=== PATIENT | female | born 1955 | race Caucasian/White ===

== ENCOUNTER → 2017-08-14 | Day surgery (SDC) | payer BC, OTHER ==
[~2017-08-14] MED LIST: Dexamethasone 20 MG/5 ML VIAL ONE; Fentanyl 100 MCG/2 ML VIAL ONE; Iothalamate Meglumine 60% 50 ML VIAL FS ONE; Ketorolac Tromethamine 30 MG/ML VIAL ONE; Lidocaine 2% PF 10 ML AMP (For Epidural Use) ONE; Midazolam HCl 2 mg/2 ml Vial ONE; Morphine Sulfate 2 MG/ML SYRINGE ONE; Ondansetron HCl/PF 4 MG/2 ML Vial ONE; PHENYLEPHRINE-NS 100 MCG/ML 10 ML SYRINGE ONE; Propofol 200 MG/20 ML VIAL ONE; ePHEDrine/0.9% NaCl/PF SYRINGE 50 mg/10 ml ONE
[2017-08-14 04:08] LABS: #Basophils 0.1 thou/uL (0.0-0.2); #Eosinphils 0.3 thou/uL (0.0-0.7); #Lymphocytes 2.3 thou/uL (1.20-3.40); #Monocytes 0.6 thou/uL (0.11-0.59); %Basophils 0.6 % (0.0-1.0); %Eosinophils 3.3 % (0.0-10.0); %Lymphocytes 22.6 % (21.0-51.0); %Monocytes 5.6 % (0.0-10.0); Hematocrit 43.6 % (36.0-47.0); Mean Platelet Volume 5.9 fL (7.4-10.4); Red Blood Cell (RBC) Count 4.64 mill/uL (4.20-5.40); White Blood Cell (WBC) Count 10.3 thou/uL (4.8-10.8)
[2017-08-14 04:25] LABS: ALT (SGPT) 26 U/L (8-55); AST (SGOT) 20 U/L (5-34); Alkaline Phosphatase 89 U/L (40-150); Anion Gap 12 mmol/L (10-20); BUN (Urea Nitrogen) 19 mg/dL (9.8-20.1); Bilirubin, Total 0.2 mg/dL (0.2-1.2); Calc. Creatinine Clearance 0 mL/min (70-130); Calcium 9.6 mg/dL (7.8-10.44); Carbon Dioxide 25 mmol/L (22-29); Chloride 107 mmol/L (98-107); Estimated GFR-MDRD 75; Globulin 3.1 g/dL (2.4-3.5); Lipase 12 U/L (8-78); Protein, Total 7.1 g/dL (6.0-8.3)
[2017-08-14 04:52] LABS: Bilirubin Negative (Negative); Blood, Urine Small (Negative); Glucose, Urine (Dipstick) 100 mg/dL (Negative); Ketone, Urine Negative (Negative); Nitrite Negative (Negative); Protein, Urine (Dipstick) Negative (Neg-Trace); Urobilinogen 0.2 mg/dL (0.2-1.0)
[2017-08-14 04:55] LABS: Bacteria/HPF None Seen HPF (None Seen); Hyaline Casts/LPF 4-6 HYALINE CAST LPF (0-3 Hyaline); Squamous Epithelial None Seen HPF (0-3)
--- NOTE | 2017-08-14 14:20 | CON ---
DATE OF CONSULTATION: 08/14/2017 REASON FOR CONSULTATION: Left ureteral stone. HISTORY OF PRESENT ILLNESS: Ms. Parson is a 62-year-old female with a history of recurrent stone di sease. She is typically managed by Dr. Cervantes. She most recently had a left ureteroscopy for left ureteral stone in 06/2016. She presents now with 3-day history of flank pain. Today, it becam e severe and intolerable. She presented to the emergency room and underwent CT scan. This demonstr ated a left upper ureteral stone approximately 6 mm in size with proximal hydroureter and hydronephr osis and perinephric stranding. She denies fevers or chills. She has had vomiting. She has been m anaged in the emergency room with pain medicine, but her pain has been recurrent. She has requested stent placement. PAST MEDICAL HISTORY: Diverticulitis, recurrent kidney stones, and overactive bladder. PAST SURGICAL HISTORY: Intervention for stones including stents and ureteroscopies, most recently 0 07/09/2017, surgery for pyloric stenosis as a . PAST MEDICAL HISTORY: Also includes psoriasis. SOCIAL HISTORY: She is . She denies excessive alcohol use. She is a nonsmoker. She is [employer] f-employed. CURRENT MEDICATIONS: Sertraline and Detrol. ALLERGIES: No known drug allergies. FAMILY HISTORY: She has a twin sister that also has diverticulitis. REVIEW OF SYSTEMS: RESPIRATORY: No shortness of breath. CARDIOVASCULAR: No chest pain or palpita tions. GASTROINTESTINAL: Denies chronic constipation, diarrhea. GENITOURINARY: Please see histor y of present illness. DERMATOLOGIC: Psoriasis. PHYSICAL EXAMINATION: GENERAL: She is awake and alert. She is in mild distress at this time. She has received pain medi cation. VITAL SIGNS: Blood pressure 138/82, pulse 72, respiratory rate 16. HEENT: Normocephalic, atraumatic. NECK: Supple, no masses. CHEST: Clear to auscultation. CARDIOVASCULAR: Regular rate and rhythm. ABDOMEN: Soft, nontender. No peritoneal signs. EXTREMITIES: No edema. She does have extensive skin changes from psoriasis. IMAGING: CT scan of upper ureteral stone on the left side with proximal hydroureter and hydronephro sis. IMPRESSION: Ms. Prason is a 62-year-old female with a history of recurrent stone disease. She now has a left upper ureteral stone. We have offered choice of observation versus stent placement. She has decided to proceed with stent placement. The procedure, potential limitations, alternatives, a nd complications have been discussed with her. PLAN: Cystoscopy, left double-J stent placement.
--- NOTE | 2017-08-14 15:10 | CT ---
PRELIMINARY REPORT/[facility]/EMERGENCY AFTER-HOURS PROCEDURE: EXAM: CT Abdomen and Pelvis Without Intravenous Contrast CLINICAL HISTORY: 62 years old, female; Pain; Abdominal pain; Flank; Left; Prior surgery; Patient HX: Er 5; 62 yo f pr esents to ed C/O l flank that started at 2100 yesterday evening. Denies pain like this in the past. Reports that she had a bm last night, states she was constipated. Denies blood in stool. Also report s n/v x2 episodes. Pt has h/o diverticulitis and kidney stones. History for pyloric stenosis at 10 we eks old. Kidney stone surgery (1998). TECHNIQUE: Axial computed tomography images of the abdomen and pelvis without intravenous contrast. Coronal reformatted images were created and reviewed. COMPARISON: No relevant prior studies available. FINDINGS: Lower thorax: No acute findings. ABDOMEN: Liver: Unremarkable. Gallbladder and bile ducts: Suspected small gallstones within a nondistended gallbladder. No ductal dilation. Pancreas: Unremarkable. No ductal dilation. Spleen: Unremarkable. No splenomegaly. Adrenals: Unremarkable. No mass. Kidneys and ureters: 5 mm obstructing stone at the left ureteropelvic junction. There is moderate hy dronephrosis on the left with moderate perinephric stranding. Associated infectious process could not be excluded. Additional 3 mm stone within the left kidney. Right kidney is unremarkable. Stomach and bowel: Moderate diverticulosis the colon. No evidence of diverticulitis. No obstruction. Appendix: No findings to suggest acute appendicitis. PELVIS: Bladder: Unremarkable. No stones. Reproductive: Unremarkable as visualized. ABDOMEN and PELVIS: Intraperitoneal space: Unremarkable. No free air. No significant fluid collection. Bones/joints: Degenerative changes of the spine, SI joints and hip joints. No acute fracture. No dis location. Soft tissues: Small umbilical hernia containing fat. No evidence of incarceration. Vasculature: Unremarkable. No abdominal aortic aneurysm. Lymph nodes: Unremarkable. No enlarged lymph nodes. IMPRESSION: 1. There is a 5 mm stone at the left ureteropelvic junction. There is associated moderate hydronephr osis and perinephric stranding. Underlying infection cannot be excluded. 2. Left nephrolithiasis. 3. Diverticulosis. Thank you for allowing us to participate in the care of your patient. Dictated and Authenticated by: Wicho Sunshine MD 08/14/2017 6:29 AM Central Time ([place] \T\ [place]) FINAL REPORT CT STONE PROTOCOL: HISTORY: Left flank pain. COMPARISON: CT abdomen and pelvis 12/17/16. FINDINGS/IMPRESSION: Findings and impression are concordant with the preliminary report. In addition, there is a large s liding hiatal hernia. There is also cholelithiasis without cholecystitis. POS: [facility]
--- NOTE | 2017-08-14 20:19 | OP ---
DATE OF PROCEDURE: 08/14/2017 PREOPERATIVE DIAGNOSIS: Left ureteral stone. POSTOPERATIVE DIAGNOSIS: Left ureteral stone. PROCEDURE PERFORMED: Cystoscopy, left double-J stent placement. SURGEON: Ritesh Parnell ANESTHESIA: General. INDICATIONS: Ms. Parson is a 62-year-old female with history of recurrent stone disease. She prese nted with left-sided flank pain that was not managed well with IV pain medicine. She opted to proce ed with stent placement. DETAILS OF PROCEDURE: The patient was given general anesthesia and IV antibiotics. She was sterile ly prepped and draped in the lithotomy position. Cystoscope was passed into the bladder and bladder examined in its entirety. There were no mucosal lesions. The left ureteral orifice was intubated with a floppy tip guidewire, which was passed cephalad under fluoroscopic control. A 6 x 24 double- J stent was passed over the guidewire and coiled in the left renal pelvis and the bladder was determ ined cystoscopically and fluoroscopically. The string was cut. The bladder was drained and the cys toscope was removed. The patient tolerated the procedure well. She was transported from the operat ing room to recovery room in stable condition. COMPLICATIONS: None. ESTIMATED BLOOD LOSS: Less than 5 mL
== END ==
LOC: ERS 03:41 → SDC 14:02
PROVIDERS: ATTEND Urology
PROC: 0T778DZ Dilation of Left Ureter with Intraluminal Device, Via Natural or Artificial Opening Endoscopic (ICD-10-PCS; principal; 2017-08-14)
DX: N20.1 Calculus of ureter (principal); L40.9 Psoriasis, unspecified; Z79.899 Other long term (current) drug therapy; Z98.890 Other specified postprocedural states; Z87.442 Personal history of urinary calculi
CPT/HCPCS: 36415; 74176; 76000; 80053; 81003; 81015; 83690; 85025; 96361; 96374; 96375; C1758; C1769; J1100; J1885; J2001; J2250; J2270; J2405; J2704; J3010; J7620; Q9961

== ENCOUNTER 2022-04-15 09:33 | Observation (INO) | payer OTHER, SELFPAY ==
[2022-04-15 10:37] LABS: Hemoglobin 5.2 g/dL (12.0-16.0); Mean Corpuscular HGB CONC 27.5 g/dL (32.0-36.0); Mean Corpuscular Hemoglobin 16.7 pg (27.0-31.0); Mean Platelet Volume 11.6 fL (7.4-10.4); Platelet Count 494 thou/uL (130-400); RBC Distribution Width 18.2 % (11.5-14.5); Red Blood Cell (RBC) Count 3.13 mill/uL (4.20-5.40); White Blood Cell (WBC) Count 8.1 thou/uL (4.8-10.8)
[2022-04-15 10:38] LABS: #Eosinphils 0.4 thou/uL (0.0-0.7); #Lymphocytes 2.8 thou/uL (1.20-3.40); #Monocytes 0.6 thou/uL (0.11-0.59); #Neutrophils 4.3 thou/uL (1.40-6.50); %Basophils 0.2 % (0.0-1.0); %Eosinophils 5.2 % (0.0-10.0); %Lymphocytes 34.7 % (21.0-51.0); %Monocytes 7.3 % (0.0-10.0); %Neutrophils 52.6 % (42.0-75.0)
[2022-04-15 11:00] LABS: Band 4 % (5-11); Elliptocytes SLIGHT = 2-5 cells (100X) (0-1/hpf); Eosinophils 7 % (0-10); Hypochromia MODERATE=16-30 cells (100X) (0-5/hpf); Lymphocytes 27 % (21-51); MDiff Complete? YES; Microcytosis MODERATE=15-30 cells (100X) (0-5/hpf); Monocytes 3 % (0-10); Neutrophil 59 % (42-75); Nucleated RBC 1 % (0); Ovalocytes SLIGHT = 2-5 cells (100X) (0-1/hpf); Platelet Morphology Comment Appears Increased; Polychromasia MODERATE = 3-4 cells (100X) (0-2/hpf)
[2022-04-15 11:22] LABS: Albumin 4.1 g/dL (3.4-4.8); Anion Gap 13 mmol/L (10-20); Bilirubin, Total 0.3 mg/dL (0.2-1.2); Calcium 9.3 mg/dL (7.8-10.44); Carbon Dioxide 23 mmol/L (23-31); Chloride 106 mmol/L (98-107); Globulin 2.8 g/dL (2.4-3.5); Glucose 126 mg/dL (80-115); Potassium 4.1 mmol/L (3.5-5.1); Protein, Total 6.9 g/dL (5.8-8.1); Sodium 138 mmol/L (136-145)
[2022-04-15 11:48] LABS: PTT 23.8 sec (22.9-36.1); Prothrombin Time 12.8 sec (12.0-14.7)
[2022-04-15 12:04] LABS: Iron 11 ug/dL (50-170); Iron Binding Capacity, Total 503 mcg/dL (265-497)
[2022-04-15 12:50] LABS: Alkaline Phosphatase 92 U/L (40-110); Calc. Creatinine Clearance 0 mL/min (70-130)
[2022-04-15 12:51] LABS: BUN (Urea Nitrogen) 17 mg/dL (9.8-20.1)
[2022-04-15 12:52] LABS: AST (SGOT) 14 U/L (5-34)
[2022-04-15 12:53] LABS: ALT (SGPT) 16 U/L (8-55)
[2022-04-15 13:36] VITALS: BMI 37.4
[2022-04-15] MEDS ORDERED: Ondansetron PF 4 MG/2 ML Vial IVP PRN (13:45)
[2022-04-15] MEDS ORDERED: Acetaminophen 325 MG TAB PO PRN (13:45)
[2022-04-15] MEDS ORDERED: Ondansetron ODT 4 MG TAB SL PRN (13:45)
[2022-04-15] MEDS: Trospium 20 MG TAB PO SCH (20:30)
[2022-04-15 21:15] LABS: Hemoglobin 8.4 g/dL (12.0-16.0)
[2022-04-15 21:18] LABS: Reticulocyte Count 2.3 % (0.5-1.5)
[2022-04-16 06:35] LABS: #Basophils 0.1 thou/uL (0.0-0.2); #Eosinphils 0.4 thou/uL (0.0-0.7); #Lymphocytes 2.1 thou/uL (1.20-3.40); #Monocytes 0.5 thou/uL (0.11-0.59); #Neutrophils 3.6 thou/uL (1.40-6.50); %Eosinophils 6.7 % (0.0-10.0); %Monocytes 6.9 % (0.0-10.0); %Neutrophils 54.4 % (42.0-75.0); Anisocytosis MODERATE=16-30 cells (100X) (0-5/hpf); Elliptocytes SLIGHT = 2-5 cells (100X) (0-1/hpf); Hemoglobin 7.7 g/dL (12.0-16.0); Hypochromia SLIGHT = 6-15 cells (100X) (0-5/hpf); MDiff Complete? YES; Mean Corpuscular HGB CONC 30.2 g/dL (32.0-36.0); Mean Corpuscular Volume 69.5 fL (78.0-98.0); Microcytosis MODERATE=15-30 cells (100X) (0-5/hpf); Platelet Count 431 thou/uL (130-400); Platelet Morphology Comment Appears Increased; Polychromasia SLIGHT = 2-3 cells (100X) (0-2/hpf); RBC Distribution Width 25.8 % (11.5-14.5); Red Blood Cell (RBC) Count 3.69 mill/uL (4.20-5.40); White Blood Cell (WBC) Count 6.7 thou/uL (4.8-10.8)
[2022-04-16 06:57] LABS: ALT (SGPT) 14 U/L (8-55); AST (SGOT) 13 U/L (5-34); Albumin 3.6 g/dL (3.4-4.8); Alkaline Phosphatase 87 U/L (40-110); Anion Gap 11 mmol/L (10-20); BUN (Urea Nitrogen) 10 mg/dL (9.8-20.1); Bilirubin, Total 0.5 mg/dL (0.2-1.2); Calc. Creatinine Clearance 134 mL/min (70-130); Calcium 8.9 mg/dL (7.8-10.44); Carbon Dioxide 24 mmol/L (23-31); Chloride 110 mmol/L (98-107); Globulin 2.5 g/dL (2.4-3.5); Glucose 99 mg/dL (80-115); Potassium 4.1 mmol/L (3.5-5.1); Protein, Total 6.1 g/dL (5.8-8.1); Sodium 141 mmol/L (136-145)
[2022-04-16 08:40] VITALS: BP 122/64; TEMP 98.4
[2022-04-16] MEDS: Trospium 20 MG TAB PO SCH (08:48)
[2022-04-16] MEDS ORDERED: Lisinopril 20 MG TAB PO SCH (09:00)
[2022-04-16 11:39] LABS: Hemoglobin 8.4 g/dL (12.0-16.0); Mean Corpuscular HGB CONC 29.7 g/dL (32.0-36.0); Mean Corpuscular Hemoglobin 20.7 pg (27.0-31.0); Mean Corpuscular Volume 69.9 fL (78.0-98.0); Mean Platelet Volume 9.8 fL (7.4-10.4); Platelet Count 444 thou/uL (130-400); RBC Distribution Width 26.2 % (11.5-14.5); Red Blood Cell (RBC) Count 4.07 mill/uL (4.20-5.40); White Blood Cell (WBC) Count 7.2 thou/uL (4.8-10.8)
[2022-04-16] MEDS ORDERED: Iron, Sodium Ferric Gluconate 250 MG in Sodium Chloride 0.9% 250 ML 250 ML IVPB SCH (12:00)
[2022-04-20 14:02] LABS: Hemoglobin A2 1.9 % (1.8-3.2); Hemoglobin F 0 % (0.0-2.0)
== END 2022-04-16 16:43 | disposition home or self-care (01) ==
LOC: ERS 09:33 → T4-A 11:31
PROVIDERS: ADMIT Family Medicine; ATTEND Family Medicine
DX: D50.9 Iron deficiency anemia, unspecified (principal); I10 Essential (primary) hypertension; L40.9 Psoriasis, unspecified; N32.81 Overactive bladder; R73.03 Prediabetes; F32.A Depression, unspecified; Z79.899 Other long term (current) drug therapy; Z20.822 Contact with and (suspected) exposure to COVID-19
CPT/HCPCS: 36415; 36430; 80053; 82274; 82607; 82728; 82746; 83021; 83540; 83550; 85025; 85046; 85060; 85610; 85730; 86340; 86850; 86900; 86901; 93005; 94760; 96374; G0378; J2916; J7050; P9016; U0003; U0005

== ENCOUNTER 2023-09-11 09:49 | Day surgery (SDC) | payer SELFPAY ==
[~2023-09-11 09:49] MED LIST changes: -Dexamethasone 20 MG/5 ML VIAL ONE; -Fentanyl 100 MCG/2 ML VIAL ONE; +Iopamidol-370 76% 500 ML MDV (1 ML CHARGE) ONE; -Iothalamate Meglumine 60% 50 ML VIAL FS ONE; -Ketorolac Tromethamine 30 MG/ML VIAL ONE; -Lidocaine 2% PF 10 ML AMP (For Epidural Use) ONE; -Midazolam HCl 2 mg/2 ml Vial ONE; -Morphine Sulfate 2 MG/ML SYRINGE ONE; -Ondansetron HCl/PF 4 MG/2 ML Vial ONE; -PHENYLEPHRINE-NS 100 MCG/ML 10 ML SYRINGE ONE; -Propofol 200 MG/20 ML VIAL ONE; -ePHEDrine/0.9% NaCl/PF SYRINGE 50 mg/10 ml ONE
[2023-09-11 10:50] LABS: #Basophils 0.1 thou/uL (0.0-0.2); #Eosinphils 0.1 thou/uL (0.0-0.7); #Neutrophils 9.6 thou/uL (1.40-6.50); %Basophils 0.4 % (0.0-1.0); %Eosinophils 0.5 % (0.0-10.0); %Monocytes 7.7 % (0.0-10.0); Hematocrit 45.5 % (36.0-47.0); Mean Corpuscular Hemoglobin 28.2 pg (27.0-31.0); Mean Corpuscular Volume 85.5 fl (78.0-98.0); Mean Platelet Volume 9.2 fL (7.4-10.4); Platelet Count 303 10x3/uL (130-400); RBC Distribution Width 20.8 % (11.5-14.5); Red Blood Cell (RBC) Count 5.32 mill/uL (4.20-5.40); White Blood Cell (WBC) Count 12.3 10x3/uL (4.8-10.8)
[2023-09-11 11:13] LABS: ALT (SGPT) 20 U/L (8-55); AST (SGOT) 19 U/L (5-34); Albumin 4.2 g/dL (3.4-4.8); Alkaline Phosphatase 68 U/L (40-110); Anion Gap 13 mmol/L (10-20); BUN (Urea Nitrogen) 11 mg/dL (9.8-20.1); Bilirubin, Total 0.3 mg/dL (0.2-1.2); Calc. Creatinine Clearance 0 mL/min (70-130); Calcium 9.7 mg/dL (7.8-10.44); Carbon Dioxide 24 mmol/L (23-31); Chloride 107 mmol/L (98-107); Estimated GFR 86; Globulin 3.2 g/dL (2.4-3.5); Glucose 127 mg/dL (80-115); Protein, Total 7.4 g/dL (5.8-8.1); Sodium 140 mmol/L (136-145)
[2023-09-11 11:51] LABS: Bilirubin Negative (Negative); Blood, Urine 3+ (Negative); CAUTI Indications for Culture Pelvic or flank pain; Clarity Turbid (Clear); Glucose, Urine (Dipstick) Normal (Negative); Ketone, Urine 10 mg/dL (Negative); Leukocyte 500 Leu/uL (Negative); Nitrite Negative (Negative); Protein, Urine (Dipstick) 30 mg/dL (Neg-Trace); RBC/HPF Greater than 50 HPF (0-3); Specific Gravity, Urine 1.017 (1.002-1.036); Squamous Epithelial 0-3 HPF (0-3); Urobilinogen Normal mg/dL (Less than 2); WBC/HPF Greater than 50 HPF (0-3)
[2023-09-11 11:54] LABS: Bacteria/HPF 1+ HPF (None Seen)
[2023-09-11] MEDS ORDERED: Morphine 4 MG/ML VIAL ONE ×3 (11:54→22:35)
[2023-09-11] MEDS ORDERED: Ketorolac Tromethamine 30 MG/ML VIAL ONE (11:54)
[2023-09-11 11:55] LABS: Urine Culture Reflex Yes Yes
[2023-09-11] MEDS ORDERED: Promethazine HCl 25 MG in Sodium Chloride 0.9% 50 ML IVPB SCH (12:00)
[2023-09-11] MEDS ORDERED: LevoFLOXacin 750 mg/D5W 150 ml Premix Bag ONE (13:56)
[2023-09-11] MEDS ORDERED: Iopamidol 30 ML ONE (22:08)
[2023-09-11] MEDS ORDERED: PROPOFOL 40 ML ONE (23:23)
[2023-09-11] MEDS ORDERED: fentaNYL PF 100 MCG/2 ML SYRINGE ONE (23:23)
[2023-09-11] MEDS ORDERED: Lidocaine 2% PF 5 ML VIAL ONE (23:25)
[2023-09-12] MEDS ORDERED: Lidocaine 1% PF 5 ML VIAL ONE (00:10)
[2023-09-12] MEDS ORDERED: Ketorolac Tromethamine 30 MG/ML VIAL ONE ×2 (00:10→00:25)
[2023-09-12] MEDS ORDERED: Ondansetron PF 4 MG/2 ML Vial ONE ×2 (00:10→00:25)
[2023-09-12] MEDS ORDERED: PROPOFOL 200 MG/20 ML VIAL ONE (00:10)
[2023-09-12] MEDS ORDERED: PHENYLEPHRINE-NS 100 MCG/ML 10 ML SYRINGE ONE ×3 (00:10→00:44)
[2023-09-12] MEDS ORDERED: Dexamethasone 4 mg/ml Vial ONE (00:25)
== END 2023-09-12 02:17 | disposition home or self-care (01) ==
LOC: ERS 09:49 → SDC/OP 09-12
PROVIDERS: ATTEND Urology
PROC: 0WHR8YZ Insertion of Other Device into Genitourinary Tract, Via Natural or Artificial Opening Endoscopic (ICD-10-PCS; principal; 2023-09-12)
DX: N13.2 Hydronephrosis with renal and ureteral calculous obstruction (principal)
CPT/HCPCS: 36415; 74177; 74420; 80053; 81001; 85025; 87086; C2617; J1100; J1885; J1956; J2001; J2270; J2405; J2550; J2704; Q9967

== ENCOUNTER 2023-09-21 10:17 | Outpatient (CLI) | payer SELFPAY | END 2023-09-21 10:18 | disposition home or self-care (01) | LOC: LABBT 10:17 | PROVIDERS: ATTEND Urology | DX: Z01.810 Encounter for preprocedural cardiovascular examination (principal); N20.1 Calculus of ureter | CPT/HCPCS: 87086; 93005; 93010 ==

== ENCOUNTER 2023-09-27 09:33 | Day surgery (SDC) | payer SELFPAY ==
[2023-09-21 11:15] VITALS: BMI 34.3
[2023-09-27] MEDS ORDERED: Iopamidol 15 ML ONE (14:04)
[2023-09-27] MEDS ORDERED: fentaNYL PF 100 MCG/2 ML SYRINGE ONE (14:14)
[2023-09-27] MEDS ORDERED: PROPOFOL 20 ML ONE (14:14)
[2023-09-27] MEDS ORDERED: Rocuronium Bromide 10 MG/ML (10ML VIAL) ONE ×2 (14:15→14:21)
[2023-09-27] MEDS ORDERED: LevoFLOXacin 500 mg/D5W 100 ML BAG ONE (14:15)
[2023-09-27] MEDS ORDERED: Lidocaine 1% PF 5 ML VIAL ONE ×2 (14:15→14:21)
[2023-09-27] MEDS ORDERED: Dexamethasone 20 MG/5 ML VIAL ONE ×2 (14:21→14:37)
[2023-09-27] MEDS ORDERED: PROPOFOL 200 MG/20 ML VIAL ONE (14:21)
[2023-09-27] MEDS ORDERED: Midazolam HCl 2 mg/2 ml Vial ONE (14:29)
[2023-09-27] MEDS ORDERED: ePHEDrine Sulfate 50 MG/10 ML VIAL ONE (14:52)
[2023-09-27] MEDS ORDERED: SUGAMMADEX SODIUM 200 MG/2 ML VIAL ONE (15:20)
== END 2023-09-27 16:50 | disposition home or self-care (01) ==
LOC: SDC 09:33
PROVIDERS: ATTEND Urology
PROC: 0T778DZ Dilation of Left Ureter with Intraluminal Device, Via Natural or Artificial Opening Endoscopic (ICD-10-PCS; principal; 2023-09-27)
PROC: 0TC78ZZ Extirpation of Matter from Left Ureter, Via Natural or Artificial Opening Endoscopic (ICD-10-PCS; principal; 2023-09-27)
DX: N20.1 Calculus of ureter (principal); E11.9 Type 2 diabetes mellitus without complications; I10 Essential (primary) hypertension; Z98.890 Other specified postprocedural states; Z79.899 Other long term (current) drug therapy
CPT/HCPCS: 74420; 82365; 88300; C1747; C2617; J1100; J1956; J2250; J2704; Q9967